=== PATIENT | female | born 2000 | race Caucasian/White ===

== ENCOUNTER 2021-12-18 23:27 | Emergency (ER) | payer BC ==
[~2021-12-18] VITALS: Ht 170.2 cm; Wt 69.4 kg
[2021-12-19] MEDS ORDERED: IBUPROFEN 600MG TABLET PO STA (01:59)
[2021-12-19] MEDS ORDERED: CYCL5TAB PO (02:29)
[2021-12-19] MEDS ORDERED: NAPR-681 PO (02:29)
[2021-12-19] MEDS ORDERED: BO1 TP (02:29)
[2021-12-19 03:23] VITALS: BP 107/63
== END 2021-12-19 03:26 | disposition home or self-care (01) ==
LOC: ER 23:27
DX: S00.83XA Contusion of other part of head, initial encounter (principal); R07.89 Other chest pain; M79.662 Pain in left lower leg; M79.661 Pain in right lower leg; S80.812A Abrasion, left lower leg, initial encounter; V43.52XA Car driver injured in collision with other type car in traffic accident, initial encounter; Y93.89 Activity, other specified; Y92.410 Unspecified street and highway as the place of occurrence of the external cause; Z88.1 Allergy status to other antibiotic agents; Z88.2 Allergy status to sulfonamides; Z88.8 Allergy status to other drugs, medicaments and biological substances
CPT/HCPCS: 71045; 73590; 81025; 93005; 99284